=== PATIENT | male | born 2000 | race African-American/Black ===

== ENCOUNTER 2019-08-23 20:22 | Emergency (ER) | payer SELFPAY ==
[~2019-08-23] VITALS: Ht 188 cm; Wt 69.4 kg
[2019-08-23 20:30] VITALS: BP 129/93
--- NOTE | 2019-08-23 20:30 | NUR ---
ED Nurse Note: Pt brought into ED by KATH Kelly from his apartment for c/o bilat arm pain and R hip pain onset one week ago, worse in the last two days. Pt was recently diagnosed with cellulitis on R bicep and did finish antibx course. 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 Pt is aaox4, no respiratory distress. No SOB, cough noted. Pt denies trauma to his hip and arms.
[2019-08-23] MEDS ORDERED: ceFAZolin sod 1 GM in NS 55 ML IVPB ONE (21:15)
[2019-08-23] MEDS ORDERED: Ketorolac 30mg Inj IV ONE (21:15)
--- NOTE | 2019-08-23 21:16 | Emergency Room Report ---
History of Present Illness General Chief Complaint: Pain Present Illness Allergies: Coded Allergies: No Known Allergies (Unverified , 04/27/19) COVID-19 Screening Contact w/high risk pt: No Recent Travel to affected area: No Experienced COVID-19 symptoms?: No COVID-19 Testing performed [employer]: No Patient History Reviewed Nursing Documentation: PMH: Agreed; PSxH: Agreed Nursing Documentation-PMH Past Medical History: No History, Except For Hx Asthma: Yes Physical Exam Vital Signs Date Time Temp Pulse Resp B/P (MAP) Pulse Ox O2 Delivery O2 Flow Rate FiO2 08/23/19 20:24 99.0 110 19 129/93 (105) 100 Room Air Medical Decision Making ER Course Patient presented for shoulder pain. Differential diagnosis include was not limited to contusion, muscle spasm, cellulitis among others. Patient is noted to have recent forearm cellulitis. Patient was given IV antibiotics. Laboratory testing was ordered. Last Vital Signs Date Time Temp Pulse Resp B/P (MAP) Pulse Ox O2 Delivery O2 Flow Rate FiO2 08/23/19 20:30 99.0 95 19 129/93 100 Room Air Referrals: NOT CHOSEN IPA/,REFERRING (PCP) Kenny Mauro MD August 23, 2019 21:16
[2019-08-23 22:04] LABS: BASOPHILS % (AUTO) 2.1 % (0.0-2.0); EOSINOPHILS % (AUTO) 9.3 % (0.0-3.0); HEMATOCRIT 41.8 % (42.0-52.0); HEMOGLOBIN 13.4 G/DL (14.2-18.0); LYMPHOCYTES % (AUTO) 28.4 % (20.0-45.0); MEAN CORPUSCULAR VOLUME 92 FL (80-99); MONOCYTES % (AUTO) 8.1 % (1.0-10.0); NEUTROPHILS % (AUTO) 52.2 % (45.0-75.0); PLATELET COUNT 298 K/UL (150-450); RED BLOOD COUNT 4.55 M/UL (4.70-6.10); RED CELL DISTRIBUTION WIDTH 13.8 % (11.6-14.8); WHITE BLOOD COUNT 7.4 K/UL (4.8-10.8)
[2019-08-23 22:10] LABS: ANION GAP 7 mmol/L (5-15); BLOOD UREA NITROGEN 11 mg/dL (7-18); CALCIUM 9.6 MG/DL (8.5-10.1); CARBON DIOXIDE 29 MMOL/L (21-32); CHLORIDE 106 MMOL/L (98-107); CREATININE 1.1 MG/DL (0.55-1.30); POTASSIUM 4.4 MMOL/L (3.5-5.1); SODIUM 142 MMOL/L (136-145)
[2019-08-23 22:15] LABS: ALANINE AMINOTRANSFERASE 27 U/L (12-78); ALBUMIN 4.1 G/DL (3.4-5.0); ALBUMIN/GLOBULIN RATIO 1.1 (1.0-2.7); ALKALINE PHOSPHATASE 103 U/L (46-116); ASPARTATE AMINO TRANSFERASE 20 U/L (15-37); BILIRUBIN,TOTAL 0.7 MG/DL (0.2-1.0)
[2019-08-23] MEDS ORDERED: IBUPROFEN600 M1 ORAL (22:27)
[2019-08-23] MEDS ORDERED: CEPHALEXIN500 MG ORAL (22:27)
[2019-08-23] MEDS ORDERED: BACTRIM DS TAB1 EAC1 ORAL (22:27)
[2019-08-23 22:35] VITALS: BP 120/85
--- NOTE | 2019-08-23 22:35 | NUR ---
ER DISCHARGE NOTE: Patient is cleared to be discharged per ERMD, pt is aox4, on room air, with stable vital signs. pt was given dc and prescription instructions, pt was able to verbalize understanding, pt id band and iv site removed without complications. pt is able to ambulate with steady gait. pt took all belongings.
--- NOTE | 2019-08-24 09:02 | Diagnostic Imaging Report ---
Procedure: XRAY Chest 1v Reason for study: Reason For Exam: SOB Comparison films: None. FINDINGS: A single one view chest is obtained. Vascularity is normal. The lung hughes are clear bilaterally. Cardiac and mediastinal silhouette are within normal limits. CP angles are sharp. The bony thorax appear unremarkable. IMPRESSION: UNREMARKABLE ONE VIEW CHEST.
== END 2019-08-23 22:35 | disposition home or self-care (01) ==
LOC: EDBD 20:22 → EMR 20:47
DX: M25.519 Pain in unspecified shoulder (principal); R06.02 Shortness of breath; L03.119 Cellulitis of unspecified part of limb
CPT/HCPCS: 36415; 71045; 80053; 85025; 96365; 96375; 99284; J0690; J1885